=== PATIENT | female | born 1960 | race Caucasian/White ===

== ENCOUNTER 2018-10-26 09:02 | Emergency (ER) | payer OTHER, MEDICAID ==
[~2018-10-26] VITALS: Ht 162.6 cm; Wt 47.7 kg
[2018-10-26 09:06] VITALS: Ht 162.6 cm; Wt 47.7 kg
[2018-10-26 09:44] LABS: APPEARANCE HAZY (CLEAR); BILIRUBIN NEGATIVE (NEGATIVE); COLOR YELLOW (YELLOW); GLUCOSE NEGATIVE (NEGATIVE); KETONE NEGATIVE (NEGATIVE); NITRITE NEGATIVE (NEGATIVE); PROTEIN TRACE mg/dL (NEGATIVE); SPECIFIC GRAVITY 1.025 (1.005-1.020); UROBILINOGEN NORMAL (NORMAL)
[2018-10-26 09:45] LABS: BACTERIA MODERATE /hpf (NONE SEEN); EPITHELIAL CELLS 0-5 /hpf (0-5); MUCUS <1+ /lpf (NONE SEEN); RED CELLS - URINE 0-5 /hpf (0-5); WHITE CELLS - URINE 0-5 /hpf (0-5)
[2018-10-26 09:53] LABS: BASOPHILS 0.2 % (0-2); EOSINOPHILS 2.2 % (0-7); HEMATOCRIT 45.9 % (36.0-48.0); HEMOGLOBIN 15.5 g/dL (12-16); IMMATURE GRANULOCYTES 0.2 % (0-5); LYMPHOCYTES 22.6 % (15-50); MCH 30.9 pg (26.0-34.0); MCHC 33.8 g/dL (31.0-37.0); MCV 91.6 fL (80.0-100.0); MEAN PLATELET VOLUME 10.3 fL (7.4-10.4); MONOCYTES 9.7 % (2-11); NEUTROPHILS 65.1 % (40-80); PLATELET COUNT 173 10x3/uL (130-400); RBC 5.01 10x6/uL (4.00-5.40); RDW 13.5 % (11.5-14.5); WBC 5.9 10x3/uL (4.8-10.8)
[2018-10-26 09:56] LABS: UDS - AMPHET NEGATIVE QUAL (NEGATIVE); UDS - BARB NEGATIVE QUAL (NEGATIVE); UDS - BENZO NEGATIVE QUAL (NEGATIVE); UDS - COCAINE NEGATIVE QUAL (NEGATIVE); UDS - OPIATE NEGATIVE QUAL (NEGATIVE); UDS - PCP NEGATIVE QUAL (NEGATIVE); UDS - THC POSITIVE QUAL (NEGATIVE)
[2018-10-26 10:01] LABS: ALBUMIN 3.8 g/dL (3.4-5.0); BILIRUBIN - TOTAL 0.32 mg/dL (0.2-1.3); CALCIUM 9.7 mg/dL (8.5-10.1); CARBON DIOXIDE 30.5 mmol/L (21.0-32.0); CREATININE - SERUM 0.9 mg/dL (0.6-1.3); POTASSIUM - SERUM 3.5 mmol/L (3.5-5.1)
[2018-10-26 10:02] LABS: C-REACTIVE PROTEIN 0.5 mg/dL (0.0-0.9); THYROID STIMULATING HORMONE 1.71 uIU/mL (0.36-3.74)
[2018-10-26 11:01] LABS: ERYTHROCYTE SEDIMENTATION RATE 20 mm/hr (0-30)
[2018-10-26] MEDS ORDERED: DOXYCYCLINE HY100 M2 PO (12:55)
[2018-10-26] MEDS ORDERED: TYLENOL W/CODEI1 TAB PO (12:55)
[2018-10-26 19:53] VITALS: BP 123/78
== END 2018-10-26 13:09 | disposition home or self-care (01) ==
LOC: D.ER 09:02
PROVIDERS: Family Medicine
DX: I88.9 Nonspecific lymphadenitis, unspecified (principal); Q28.2 Arteriovenous malformation of cerebral vessels

== ENCOUNTER 2018-11-03 14:31 | Outpatient (CLI) | payer MEDICAID ==
[~2018-11-03] VITALS: Ht 162.6 cm; Wt 94.5 kg
--- NOTE | ~2018-11-03 | HEMODYNAMI ---
PATIENT:MICHAEL ECHEVERRIA MEDICAL RECORD: [id number] : 58 LOCATION:D. D.2115 ADMISSION DATE: 11/03/18 Generatedon:11/04/201811:44 Patient name: MICHAEL ECHEVERRIA Patient #: [id number] SSN: : 1960 Date of study: 11/04/2018 Page: Of Hemodynamic Procedure Report Patient Data Patient Demographics Procedure consent was obtained First Name: MICHAEL Gender: Female Last Name: JUWAN : 1960 Patient #: [id number] Age: 58 year(s) Race: Unknown Additional ID: [id number] Contact details Address: [address] [place] [address] State: [place] City: [place] Zip code: [address] Past Medical History Allergies: No known allergies Admission Admission Data Admission Date: 11/03/2018 Admission Time: 14:31 Admit Source: Emergency department Room #: D.2115 Weight (lbs.): 98.11 Weight (kg.): 44.5 Procedure Procedure Types Cath Procedure Diagnostic Procedure LHC LHC w/Coronaries Peripheral Cath Diagnostic Procedure 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 Peripheral Procedures Hbmij-Lthvxhh-Zsq-Off Procedure Description Procedure Date Procedure Date: 11/04/2018 Procedure Start Time: 11:30 Procedure End Time: 11:43 Procedure Staff Name Function Mando Vo MD Performing Physician Amandeep Wilkinson RT Monitor Mahi Calderon RT Scrub Ely Zavaleta RN Nurse Procedure Data Cath Procedure Fluoroscopy Diagnostic fluoroscopy Total fluoroscopy Time: 1.1 time: 1.1 min min Diagnostic fluoroscopy Total fluoroscopy dose: dose: 39.04 mGy 39.04 mGy Contrast Material Contrast Material Type Amount (ml) Isovue 370 78 Entry Location Entry Primary Successful Side Size Upsize Upsize Entry Closure Succes sful Closure Location (Fr) 1 (Fr) 2 (Fr) Remarks Device Remarks Femoral Left 5 Fr Exoseal artery Estimated blood loss: 5 ml Diagnostic catheters Device Type Used For End Catheter Placement MULTIPACK JL 4.0 5Fr Procedure catheter MULTIPACK 3DRC 5Fr Procedure catheter MULTIPACK Pigtail 5 Fr Procedure catheter Procedure Complications No complications Procedure Medications Medication Administration Route Dosage Oxygen etCO2 Nasal cannula 2 l/min Lidocaine 2% added to field 20 Heparin Flush Bag added to field 2 bags (1000units/500ml NS) 0.9% NaCl I.V. ml/hr Benadryl I.V. 50 mg Versed I.V. 1 mg Fentanyl I.V. 50 mcg Versed I.V. 1 mg Fentanyl I.V. 50 mcg Versed I.V. 1 mg Fentanyl I.V. 50 mcg Hemodynamics Rest Heart Rate: 61 (bpm) Snapshots Pre Cath Intra NCS Post Cath Vital Signs Time Heart Resp SPO2 etCO2 NIBP (mmHg) Rhythm Pain Sedation Rate (ipm) (%) (mmHg) Status Level (bpm) 11:08:34 56 22 98 0 140/70(94) SB 0 (11) 10(A) , No pain 11:12:39 59 21 99 25.3 154/77(102) SB 0 (11) 10(A) , No pain 11:16:23 60 30 99 23.8 126/65(90) NSR 0 (11) 10(A) , No pain 11:20:26 58 15 98 35 138/66(95) SB 0 (11) 10(A) , No pain 11:24:01 67 18 98 18.6 148/110(126) NSR 0 (11) 10(A) , No pain 11:28:13 56 13 98 0.7 126/64(83) SB 0 (11) 10(A) , No pain 11:32:25 54 13 98 38.7 117/53(74) SB 0 (11) 9(A) , No pain 11:36:33 55 16 98 37.3 106/53(72) SB 0 (11) 9(A) , No pain 11:40:37 55 23 98 38 105/54(72) SB 0 (11) 10(A) , No pain Medications Time Medication Route Dose Verified Delivered Reason Notes Eff ectiveness by by 11:16:14 Oxygen etCO2 2 Mando Graves used for Nasal l/min Gilda Zavaleta financial sales associate cannula 11:16:20 Lidocaine 2% added 20ml Mando Gilmore for local to vial Gilda Vo MD anesthetic field 11:16:26 Heparin Flush added 2 Mando Gilmore used for Bag to bags Gilda Vo MD procedure (1000units/500ml field NS) 11:16:34 0.9% NaCl I.V. ml/hr Mando Graves Per Gilda Zavaleta RN physician 11:17:09 Benadryl I.V. 50 mg Mando Graves used for from Gilda Zavaleta RN procedure floor stock 11:30:19 Versed I.V. 1 mg Mando Graves for Gilda Zavaleta RN sedation 11:30:25 Fentanyl I.V. 50 Mando Diasie for jeb Zavaleta RN sedation 11:33:54 Versed I.V. 1 mg Mando Graves for Gilda Zavaleta RN sedation 11:33:57 Fentanyl I.V. 50 Mando Diasie for mcg Gilda Zavaleta RN sedation 11:35:52 Versed I.V. 1 mg Manod Graves for Gilda Zavaleta RN sedation 11:35:56 Fentanyl I.V. 50 Mando Graves for mcg Gilda Zavaleta RN sedation Procedure Log Time Note 10:30:36 Ely Zavaleta RN sent for patient. Start room use. 10:56:17 Informed consent obtained and on chart 10:56:20 Admit Source: Emergency department 10:56:33 Diagnostic Cath status Urgent 10:56:41 Time tracking: Regular hours (M-F 7:00 - 5:00) 10:56:44 Plan of Care:Hemodynamics will remain stable., Cardiac rhythm will remain stable., Comfort level will be maintained., Respiratory function will remain adequate., Patient/ family verbilizes understanding of procedure., Procedure tolerated without complication., Recovers from procedure without complications.. 10:56:51 H&P Date Dictated: 11/03/2018 Within 30 days and on chart.. 10:57:27 Lab Result : BUN 20 mg/dl 10:57:27 Lab Result : Creatinine 0.8 mg/dl 10:57:28 Lab Result : Hemoglobin 15.3 g/dl 10:57:28 Lab Result : Hematocrit 44.2 % 10:57:29 Lab results completed and on chart. 10:57:51 Patient received from Med II to CCL 3 Alert and oriented. Tansferred to table in Supine position. 10:57:52 Warm blankets applied, and papito hugger turned on for patient comfort. 10:57:52 Correct patient and procedure confirmed by team. 10:57:53 ECG and BP/O2 sat monitors applied to patient. 10:57:53 Pre-procedure instructions explained to patient. 10:57:54 Pre-op teaching completed and patient verbalized understanding. 10:57:55 Family in patients room. 10:57:56 Patient NPO since Midnight. 10:58:01 Patient allergic to No known allergies 11:07:59 Vital chart was started 11:08:00 Baseline sample Acquired. 11:08:03 Rhythm: sinus rhythm 11:08:04 Full Disclosure recording started 11:08:07 Is the patient allergic to Iodine/contrast media? No. 11:08:07 Is patient on blood thinner?Yes 11:08:10 ACC The patient was administered the following blood thiners within the last 24 hours: ACCPlavix 11:08:11 Patient diabetic? No. 11:08:14 Previous problem with sedation/anesthesia? No ? 11:08:15 Snore? No 11:08:16 Sleep apnea? No 11:08:17 Deviated septum? No 11:08:17 Opens mouth fully? Yes 11:08:18 Sticks out tongue? Yes 11:08:19 Airway obstruction? No ? 11:08:22 Dentures? Yes out 11:08:24 Pre procedure: right dorsailis pedis pulse 2+ Normal; easily identifiable; not easily obliterated 11:08:26 Pre procedure: left dorsailis pedis pulse 2+ Normal; easily identifiable; not easily obliterated 11:08:28 Patient pain scale 0/10 ?. 11:08:31 IV patent on arrival in left hand with 0.9% NaCl at [facility]. 11:08:34 Bilateral groins area was prepped with chlora-prep and draped in sterile fashion 11:08:35 Alarms reviewed by R. N. 11:08:35 Sharps counted by scrub and verified by R.N. 11:08:37 Use device set Femoral Dx 11:08:37 ACIST Syringe (72161) opened to sterile field. 11:08:38 Bag Decanter (2002S) opened to sterile field. 11:08:38 Medline Cath Pack ([id number]) opened to sterile field. 11:08:40 ACIST Hand Control (13372) opened to sterile field. 11:08:41 ACIST Manifold (66841) opened to sterile field. 11:08:42 Tegaderm 4 x 4 (1626W) opened to sterile field. 11:08:42 SHEATH 5FR Evangeline (PLY836) opened to sterile field. 11:08:44 DIAGNOSTIC Multipack 5Fr catheter set (EN5181) opened to sterile field. 11:08:46 DIAGNOSTIC WIRE .035 260cm J wire (576571) opened to sterile field. 11:16:14 Oxygen 2 l/min etCO2 Nasal cannula was administered by Ely Zavaleta RN; used for procedure; 11:16:20 Lidocaine 2% 20ml vial added to field was administered by Mando Vo MD; for local anesthetic; 11:16:26 Heparin Flush Bag (1000units/500ml NS) 2 bags added to field was administered by Mando Vo MD; used for procedure; 11:16:34 0.9% NaCl ml/hr I.V. was administered by Ely Zavaleta RN; Per physician; 11:16:43 IV Extension Set opened to sterile field. 11:17:09 Benadryl 50 mg I.V. was administered by Ely Zavaleta RN; used for procedure; from floor stock 11:17:44 Patient Weight : 98.11 lbs 11:18:40 Zero performed for pressure channel P1 11:23:12 Zero performed for pressure channel P1 11:29:05 Physician arrived 11:29:05 --------ALL STOP TIME OUT------ 11:29:06 Final Timeout: patient, procedure, and site verified with staff and physician. All members of the team are in agreement. 11:29:07 Bilateral groins site verified by team. 11:29:35 Maximum allowable Isovue 300 dose 300ml. Physician notified. (300ml for normal creatinines. For patients with creatinine of 1.7 or higher multiply weight(kg) x 5 divided by creatinine.) 11:29:40 Fire Safety Assessment: A--An alcohol-based skin anteseptic being used preoperatively., C--Open oxygen or nitrous oxide is being used., D--An ESU, laser, or fiber-optic light is being used. 11:29:43 Physical assessment completed. ASA score P 2 - A patient with mild systemic disease as per Mando Vo MD. 11:29:45 Sedation plan: IV Moderate Sedation Medication:Versed, Fentanyl 11:30:19 Versed 1 mg I.V. was administered by Ely Zavaleta RN; for sedation; 11:30:25 Fentanyl 50 mcg I.V. was administered by Ely Zavaleta RN; for sedation; 11:30:42 Procedure started. 11:30:46 Local anesthetic to left femerol artery with Lidocaine 2% by Mando Vo MD.INITIAL ACCESS ONLY 11:30:58 A 5 Fr sheath was inserted into the Left Femoral artery 11:32:30 A MULTIPACK JL 4.0 5Fr catheter was advanced over the wire and used for Procedure. 11:32:41 LCA angiography performed. 11:33:10 Catheter exchanged over wire. 11:33:19 A MULTIPACK 3DRC 5Fr catheter was advanced over the wire and used for Procedure. 11:33:54 Versed 1 mg I.V. was administered by Ely Zavaleta RN; for sedation; 11:33:57 Fentanyl 50 mcg I.V. was administered by Ely Zavaleta RN; for sedation; 11:34:48 RCA angiography performed. 11:34:50 Catheter exchanged over wire. 11:34:54 A MULTIPACK Pigtail 5 Fr catheter was advanced over the wire and used for Procedure. 11:35:01 LV gram done using LANDIS 11:35:03 Injector settings: Ml/sec: 10, Volume: 20, 11:35:05 LV hemodynamics recorded. 11:35:09 EF : 55 % 11:35:52 Versed 1 mg I.V. was administered by Ely Zavaleta RN; for sedation; 11:35:56 Fentanyl 50 mcg I.V. was administered by Ely Zavaleta RN; for sedation; 11:36:35 Abdominal angiogram w/ runoff was performed. 11:36:49 Left leg runoff performed. 11:37:04 Right leg runoff performed. 11:37:22 Catheter removed. 11:37:32 EXOSEAL 5Fr (EX500) opened to sterile field. 11:37:41 Sheath removed intact; hemostasis achieved with Exoseal to the Left Femoral artery. 11:37:43 Procedure ended.(Physican Out) 11:41:33 Fluoroscopy time 01.10 minutes. 11:41:38 Fluoroscopy dose: 39.04 mGy 11:41:38 Flurop Dose total: 39.04 11:41:44 Contrast amount:Isovue 370 78ml. 11:41:45 Sharps counted by scrub and verified by R.N. 11:41:46 Insertion/operative site no bleeding no hematoma. 11:41:48 Post-op/insertion site Left Femoral artery dressed using a 4 x 4 and Tegaderm. 11:41:52 Post left femerol artery:stable, soft, clean and dry 11:41:53 Post Procedure Pulses reassessed and unchanged 11:41:55 Post-procedure physical assessment completed. ASA score P 2 - A patient with mild systemic disease as per Mando Vo MD. 11:41:57 Post procedure rhythm: unchanged. 11:42:00 Estimated blood loss: 5 ml 11:42:01 Post procedure instruction explained to patient.Patient verbalizes understanding. 11:42:01 Patient needs reinforcement of post procedure teaching. 11:43:23 Procedure and supply charges have been captured, reviewed, submitted and are correct. 11:43:25 Procedure Complication : No complications 11:43:27 Vital chart was stopped 11:43:27 See physician's report for complete and final results. 11:43:29 Report given to PCU. 11:43:31 Patient transfered to PCU with Stretcher. 11:43:34 Procedure ended. 11:43:34 Full Disclosure recording stopped 11:43:39 End room use (Document Last) Device Usage Item Name Manufacture Quantity Catalog Hospital Part Current Minimal L ot# / Number Charge Number Stock Stock Serial# Code ACIST Acist 1 69756 595739 139022 232165 20 Syringe Medical (33081) Systems Inc Bag Microtek 1 186818 00932 346870 5 Decanter Medical Inc. () Medline Medline 1 [id number] 512591 44525 451870 5 Cath Pack ([id number]) ACIST Hand Acist 1 88719 122726 342078 881924 5 Control Medical (03482) Systems Inc ACIST Acist 1 90265 849215 772298 056120 5 Manifold Medical (59507) Systems Inc Tegaderm 4 3M 1 1626W 211942 728320 723973 5 x 4 (1626W) SHEATH 5FR Terumo 1 SZP675 166684 047386 570712 5 Evangeline (ZCV174) DIAGNOSTIC Cardinal 1 KN0303 536844 28386 684562 30 Multipack Health 5Fr catheter set (YE1823) DIAGNOSTIC St Raphael 1 887507 843440 712000 489222 30 WIRE .035 260cm J wire (692449) IV Hospira 1 64983-53 075574 76924 126879 5 Extension Set MULTIPACK Cardinal 1 994423 5 JL 4.0 5Fr Health catheter MULTIPACK Cardinal 1 673523 5 3DRC 5Fr Health catheter MULTIPACK Cardinal 1 569860 5 Pigtail 5 Health Fr catheter EXOSEAL 5Fr Cardinal 1 EX500 137901 686402 812056 10 (EX500) Health Signature Audit [place] Stage Time Signature Unsigned Intra-Procedure 11/04/2018 Amandeep Wilkinson 11:43:54 AM RT(R) Signatures Monitor : Amandeep Wilkinson RT Signature : Date : Time : [id number] [facility] [place] [address]
[~2018-11-03 14:31] MED LIST: DOXYCYCLINE HY100 M2 PO; TYLENOL W/CODEI1 TAB PO
[2018-11-03] MEDS ORDERED: PAXIL20 MG PO (14:42)
[2018-11-03 15:17] LABS: BASOPHILS 0.5 % (0-2); EOSINOPHILS 2.6 % (0-7); HEMATOCRIT 44.2 % (36.0-48.0); HEMOGLOBIN 15.3 g/dL (12-16); IMMATURE GRANULOCYTES 0.2 % (0-5); LYMPHOCYTES 30.2 % (15-50); MCH 31.3 pg (26.0-34.0); MCHC 34.6 g/dL (31.0-37.0); MCV 90.4 fL (80.0-100.0); MONOCYTES 10.1 % (2-11); NEUTROPHILS 56.4 % (40-80); PLATELET COUNT 176 10x3/uL (130-400); RBC 4.89 10x6/uL (4.00-5.40); RDW 13.4 % (11.5-14.5); WBC 6.5 10x3/uL (4.8-10.8)
[2018-11-03 15:21] LABS: APTT 25.3 SECONDS (22.8-39.4); INR 1.03 (0.85-1.17)
[2018-11-03 15:24] LABS: ALBUMIN 3.7 g/dL (3.4-5.0); ALKALINE PHOSPHATASE 108 U/L (46-116); ALT (SGPT) 19 U/L (10-68); BILIRUBIN - TOTAL 0.33 mg/dL (0.2-1.3); CALC OSMOLALITY 281 mosm/kg (275-300); CALCIUM 9.8 mg/dL (8.5-10.1); CARBON DIOXIDE 28.1 mmol/L (21.0-32.0); CHLORIDE - SERUM 103 mmol/L (98-107); CREATININE - SERUM 0.8 mg/dL (0.6-1.3); GLUCOSE 150 mg/dL (74-106); POTASSIUM - SERUM 3.2 mmol/L (3.5-5.1); PROTEIN - SERUM 8.3 g/dL (6.4-8.2); SODIUM 138 mmol/L (136-145); UREA NITROGEN 20 mg/dL (7-18); eGFR NON AFRICAN AMERICAN 78 mL/min (90-120)
[2018-11-03 15:36] LABS: CKMB 0.6 U/L (0.0-3.6); CREATINE KINASE 29 UL (21-215); MAGNESIUM - SERUM 1.8 mg/dL (1.8-2.4)
[2018-11-03 15:37] LABS: TROPONIN-I < 0.017 ng/mL (0.000-0.060)
[2018-11-03 18:18] LABS: CKMB 0.7 U/L (0.0-3.6); CREATINE KINASE 30 UL (21-215); TROPONIN-I < 0.017 ng/mL (0.000-0.060)
--- NOTE | 2018-11-03 18:37 | NUR ---
TRANSFER FROM ER BY W/C. SOCORROINTED TO ROOM. CALL LIGHT IN REACH. WILL CONT. PLAN OF CARE.
--- NOTE | 2018-11-03 19:37 | NUR ---
RESUMING PATIENT CARE. PATIENT IS ALERT AND ORIENTED. RESTING COMFORTABLY IN BED. RESPIRATIONS ARE EVEN AND UNLABORED. NO S/S OF DISTRESS. NO C/O PAIN. CALL LIGHT WITHIN REACH. WILL CPOC.
[2018-11-03 20:00] VITALS: BP 101/56
[2018-11-03 22:38] VITALS: BP 124/81; Ht 162.6 cm; Wt 94.5 kg
[2018-11-04 00:19] LABS: CKMB 0.2 U/L (0.0-3.6); CREATINE KINASE 24 UL (21-215)
[2018-11-04 00:21] LABS: TROPONIN-I < 0.017 ng/mL (0.000-0.060)
[2018-11-04 00:40] VITALS: BP 97/59
[2018-11-04 05:38] VITALS: BP 120/62
[2018-11-04 06:41] LABS: ALBUMIN 3.1 g/dL (3.4-5.0); ALKALINE PHOSPHATASE 81 U/L (46-116); ALT (SGPT) 18 U/L (10-68); BILIRUBIN - TOTAL 0.47 mg/dL (0.2-1.3); CALC OSMOLALITY 281 mosm/kg (275-300); CALCIUM 9.1 mg/dL (8.5-10.1); CARBON DIOXIDE 25.8 mmol/L (21.0-32.0); CHLORIDE - SERUM 106 mmol/L (98-107); CKMB 0.7 U/L (0.0-3.6); CREATINE KINASE 30 UL (21-215); CREATININE - SERUM 0.6 mg/dL (0.6-1.3); GLUCOSE 109 mg/dL (74-106); PROTEIN - SERUM 6.8 g/dL (6.4-8.2); SODIUM 140 mmol/L (136-145); TROPONIN-I < 0.017 ng/mL (0.000-0.060); UREA NITROGEN 17 mg/dL (7-18); eGFR NON AFRICAN AMERICAN > 90 mL/min (90-120)
[2018-11-04 06:46] LABS: POTASSIUM - SERUM 3.8 mmol/L (3.5-5.1)
[2018-11-04 07:27] LABS: BASOPHILS 0.2 % (0-2); EOSINOPHILS 2.6 % (0-7); HEMATOCRIT 37.7 % (36.0-48.0); HEMOGLOBIN 12.8 g/dL (12-16); IMMATURE GRANULOCYTES 0.2 % (0-5); MCH 30.8 pg (26.0-34.0); MCV 90.6 fL (80.0-100.0); MEAN PLATELET VOLUME 10.3 fL (7.4-10.4); MONOCYTES 8.2 % (2-11); NEUTROPHILS 61.8 % (40-80); PLATELET COUNT 144 10x3/uL (130-400); RBC 4.16 10x6/uL (4.00-5.40); RDW 13.6 % (11.5-14.5); WBC 5.3 10x3/uL (4.8-10.8)
[2018-11-04 08:00] VITALS: BP 112/67
[2018-11-04 11:00] VITALS: BP 116/65
--- NOTE | 2018-11-04 11:41 | HP ---
PATIENT: MICHAEL DOSHI MEDICAL RECORD: [id number] ACCOUNT: [id number] LOCATION:[address] : 58 ADMISSION DATE: 11/03/18 PCP: LENA ALAN MD HISTORY AND PHYSICAL EXAMINATION ADMITTING DIAGNOSES: 1. Unstable angina. 2. Abnormal ECG. 3. Claudication. 4. Smoking history. HISTORY OF PRESENT ILLNESS: Ms. Doshi presented to our office this week with increasing episodes of chest pain. In the office, her EKG had significant ST depression inferolaterally. She was set for cardiac catheterization later in the week. Her chest pain has deescalated. She is having multiple episodes at rest. She presented to the Emergency Room. Her troponin is normal. Now, her EKG is without the changes that she had in our office. She was put on Bystolic. Her heart rate and EKG here is in the 60s. In the office, her heart rate was approximately 100. However, despite the improved EKG and heart rate, she is continuing to have the episodes of chest pain. It continued to progress, as well she complains of right leg claudication. This has been going on for a number of months. It is severe lifestyle limiting claudication, and her pulses in the right leg are worse than that in the left. She was set for aortofemoral runoff as well as the cardiac catheterization due to the claudication symptomatology of the right leg. PHYSICAL EXAMINATION: GENERAL APPEARANCE: Well-nourished, well-developed, appears stated age. Level of distress, comfortable. PSYCHIATRIC: Mental status, alert, normal affect. Orientation, oriented to time, place and person. EYES: Lids and conjunctiva, noninjected. No discharge, no pallor. ENT: Lips, teeth, gums, normal dentition. Oropharynx, no cyanosis, no pallor. NECK: Carotid arteries, bilateral normal upstroke, no bruits, no thrills. JUGULAR VEINS: No jugular venous pressure or distention. CERVICAL LYMPH NODES: Nontender, nonenlarged. THYROID: Not enlarged. Nontender. No nodules. LUNGS: Respiratory effort, unlabored. CHEST: Normal curvature. No thoracic deformity. No chest wall tenderness. Percussion, resonant. Auscultation, clear. No wheezes, no rales, no rhonchi. CARDIOVASCULAR: Precordial exam, nondisplaced. No heaves or pericardial thrills. Rate and rhythm, regular. Heart sounds, normal S1, normal S2. No S3, no gallop, no rub. Systolic murmur, not heard. Diastolic murmur, not heard. EXTREMITIES: No cyanosis, no edema. Peripheral pulses, full and equal in all extremities, except as noted. No bruits appreciated. ABDOMEN: Soft, nondistended. Normal aorta. No bruit. Nontender. No masses. Liver, nontender, no hepatomegaly. Spleen, nontender, no splenomegaly. MUSCULOSKELETAL: No joint tenderness. No joint swelling. No erythema. NEUROLOGICAL: Normal gait, normal strength, normal tone. SKIN: Warm and dry. OVERALL IMPRESSION: Progressive chest pain despite good heart rate and blood pressure control with the Bystolic. She continues to have progression of her symptomatology. We will proceed with coronary angiography and due to the progressive claudication symptomatology, we will proceed with aortofemoral HISTORY AND PHYSICAL [id number] MICHAEL DOSHI. TRANSINT:[id number] Voice Confirmation ID: [id number] DOCUMENT ID: [id number] MALVIN JESUS MD at 1141 CC: [id number] DICTATION DATE: 11/04/18806 MEDICAL NURSE: 11/04/18 08 [facility] [address] [id number]
--- NOTE | 2018-11-04 12:06 | NUR ---
BACK FROM FRONT ELEVATOR OPERATOR. VS WNL. LEFT GROIN STABLE WITHOUT BLEEDING OT HEMATOMA NOTED. WILL MONITOR.
--- NOTE | 2018-11-04 14:22 | NUR ---
BED REST UP. GROIN STABLE.
--- NOTE | 2018-11-04 15:27 | NUR ---
IV AND TELEMETRY DCD. DC PLANS GIVEN. UNDERSTANDING VOICED. ESCORTED TO CAR BY W/C.
--- NOTE | 2018-11-06 16:41 | DS ---
PATIENT:MICHAEL DOSHI :58 MEDICAL RECORD: [id number] DISCHARGE SUMMARY ADMISSION DATE: 11/03/18 DISCHARGE DATE: 11/04/18 DISCHARGE DIAGNOSES: 1. Chest pain. 2. Leg pain. 3. Normal cardiac catheterization this admission. 4. Normal aortofemoral runoff this admission. 5. Shortness of breath, dyspnea on exertion. HISTORY AND HOSPITAL COURSE: Ms. Doshi presents with claudication and anginal symptomatology; however, cardiac catheterization reveals no significant coronary artery disease, no significant peripheral vascular disease. Her leg pain and chest pain are nonarterial vascular in etiology. She was discharged home with no cardiac followup. Follow up with her primary care physician. TRANSINT:[id number] Voice Confirmation ID: [id number] DOCUMENT ID: [id number] MALVIN JESUS MD at 1641 CC: [id number] DICTATION DATE: 11/04/18 1147 LOG INSPECTOR: 11/04/18 1205 DEP CLI 11/04/18 [id number] [place] [address]
--- NOTE | 2018-11-06 16:41 | OP ---
PATIENT NAME: MICHAEL ECHEVERRIA MEDICAL RECORD: [id number] :58 LOCATION:D.OPS ADMISSION DATE: SURGEON: MALVIN JESUS MD DATE OF OPERATION: 11/04/2018 PROCEDURES: 1. Left heart catheterization. 2. Selective coronary angiography. 3. Left ventriculogram. 4. Aortofemoral runoff. 5. Abdominal aortography. INDICATIONS: Chest pain compatible with angina, leg pain compatible with claudication. PROCEDURE IN DETAIL: After informed consent was obtained and after a detailed explanation of risks, benefits as well as alternative therapies, the patient elected to proceed with angiogram and heart catheterization. The right femoral area was prepped and draped in normal sterile fashion. Right femoral artery was cannulated via modified Seldinger technique with placement of 6-Persian sheath. All catheters exchanged through this sheath. FINDINGS: Left ventriculogram was performed in standard 30-degree LANDIS view, reveals good cardiac wall motion throughout all segments. Overall ejection fraction estimated 60%. SELECTIVE CORONARY ANGIOGRAPHY: Left main, left anterior descending, left circumflex, right coronary artery are all smooth-walled vessels. There was no angiographic evidence of coronary artery disease. Abdominal aortography was performed. The catheter was pulled down for aortofemoral runoff. Abdominal angiography reveals no significant abdominal aortic disease, no dissection or aneurysm formation. No renal artery stenosis. RIGHT LEG: A. Iliac: The common internal and external iliacs are smooth-walled vessels with no angiographic evidence of peripheral vascular disease. B. Femoral system: The common, superficial, and deep femoral are smooth walled with no evidence of peripheral vascular disease. C. Popliteal and infrapopliteal vessels are small, but widely patent. There is 3-vessel runoff to the foot. LEFT LEG: A. Iliac: The common internal and external iliacs are smooth-walled vessels with no angiographic evidence of peripheral vascular disease. B. Femoral system: The common, superficial, and deep femoral are smooth walled with no evidence of peripheral vascular disease. C. Popliteal and infrapopliteal vessels are small, but widely patent. There is 3-vessel runoff to the foot. OVERALL IMPRESSION: No coronary artery disease is present. No peripheral vascular disease is present. Normal LV function. Symptomatology is nonarterial vascular in etiology. TRANSINT:[id number] Voice Confirmation ID: [id number] DOCUMENT ID: [id number] OPERATIVE REPORT [id number] JUWANMICHAEL SORENSEN JEFFREY MD at 1641 CC: [id number] DICTATION DATE: 11/04/18 1149 ICT SALES ASSISTANT: 11/04/18 1203 DEP CLI 11/04/18 [address] [place] [address]
== END 2018-11-04 15:28 | disposition home or self-care (01) ==
LOC: D.OPS 14:31 → D.M2 14:31 → D.ER 14:31 → EDSTATUS 17:32 → D.M2 17:47 → D.OPS 11-04 15:28
PROVIDERS: Family Medicine; ATTEND Internal Medicine Interventional Cardiology
DX: R07.9 Chest pain, unspecified (principal)

== ENCOUNTER → 2018-12-09 14:00 | Outpatient (CLI) | payer MEDICAID ==
[2018-11-03 22:38] VITALS: BMI 22.3
[~2018-12-09 14:00] MED LIST changes: +PAXIL20 MG PO
== END | disposition home or self-care (01) ==
LOC: D.MRI 14:00
PROVIDERS: ATTEND Orthopaedic Surgery
DX: M67.431 Ganglion, right wrist (principal)

== ENCOUNTER 2019-01-19 09:05 | Day surgery (SDC) | payer MEDICAID ==
[2019-01-18 11:04] LABS: HEMATOCRIT 43.5 % (36.0-48.0); HEMOGLOBIN 15.1 g/dL (12-16); MCH 31.5 pg (26.0-34.0); MCHC 34.7 g/dL (31.0-37.0); MCV 90.6 fL (80.0-100.0); MEAN PLATELET VOLUME 9.8 fL (7.4-10.4); RBC 4.8 10x6/uL (4.00-5.40); RDW 13.6 % (11.5-14.5); WBC 5.3 10x3/uL (4.8-10.8)
[~2019-01-19] VITALS: Ht 167.6 cm; Wt 49.4 kg
[2019-01-19 10:16] VITALS: BP 118/69; Ht 167.6 cm; Wt 49.4 kg
[2019-01-19] MEDS ORDERED: DURICEF500 MG PO (12:21)
[2019-01-19] MEDS ORDERED: HYDROCODON-ACE1 EAC7 PO (12:21)
--- NOTE | 2019-01-19 14:02 | OP ---
PATIENT NAME: MICHAEL DOSHI MEDICAL RECORD: [id number] :58 LOCATION:D.OPS ADMISSION DATE: SURGEON: JASON BRYSON DO DATE OF OPERATION: 01/19/2019 PROCEDURE PERFORMED: Right wrist cyst excision. PREOPERATIVE DIAGNOSIS: Cyst of the right wrist. POSTOPERATIVE DIAGNOSIS: Cyst of the right wrist. INDICATIONS: Ms. Doshi is a 58-year-old female, who had this cyst on her right wrist over the ulnar side for quite some time. It got bigger and was quite bothersome to her. It was very large over the ulnar side and dorsal side of the wrist. I got an MRI, which showed a cyst. We described it as possibly ganglion cyst in the extensor carpi ulnaris tendon sheath. I informed her that I could remove it, but there is good chance of it to come back. She is okay with that and was willing to accept the risks of damage to the ulnar sensory nerve of the dorsal wrist and bleeding, recurrence of the cyst, and need for further surgery, infection and bleeding. She was okay with all those and signed the consent. SURGEON: Jason Bryson DO DESCRIPTION OF PROCEDURE: The patient was taken to the operative suite, laid in supine position, given a gram of Ancef preoperatively. The right upper extremity was prepped and draped in sterile fashion. A tourniquet was used after time-out was performed. The right upper extremity was exsanguinated with an Esmarch and tourniquet was inflated for approximately 30 minutes. The incision was then marked out over the ulnar dorsal side of the wrist in line with the ECU tendon. Careful dissection was made down to the tendon itself retracting the dorsal sensory branch of the ulnar nerve out of the away when encountered, opened the sheath and the tendon was somewhat frayed and the cyst that was around it had small beads in and around the tendon sheath. All this was removed and the tendon was debrided very carefully and was not torn more than 50%, so no repair was done. This was then thoroughly irrigated. The cyst and the small beads were sent for path. Once this was all removed, the tourniquet was let down and any bleeding was coagulated with bipolar at that time and the skin was closed with 4-0 Monocryl in an inverted interrupted fashion and Prineo glue placed on the skin. It was then wrapped with Adaptic, 4 x 4, and secured with an Omkar wrap. She was awakened and taken to recovery in stable condition. BLOOD LOSS: Minimal. COMPLICATION: None. TRANSINT:[id number] Voice Confirmation ID: [id number] DOCUMENT ID: [id number] OPERATIVE REPORT [id number] MICHAEL DOSHI MICHAEL D, DO at 1402 CC: [id number] DICTATION DATE: 01/19/19 1219 SUPERINTENDENT MARINE: 01/19/19 1256 [facility] 01/19/19 [address] [place] [address]
== END 2019-01-19 13:48 | disposition home or self-care (01) ==
LOC: D.OPS 09:05 → D.PAN 11:30 → D.OPS 11:30
PROVIDERS: Anesthesiology; ATTEND Orthopaedic Surgery
DX: M71.331 Other bursal cyst, right wrist (principal); Z01.812 Encounter for preprocedural laboratory examination

== ENCOUNTER → 2019-09-13 08:08 | Outpatient (CLI) | payer OTHER ==
[2019-01-19 10:16] VITALS: BMI 17.6
[~2019-09-13 08:08] MED LIST changes: +DURICEF500 MG PO; +HYDROCODON-ACE1 EAC7 PO
== END | disposition home or self-care (01) ==
LOC: D.MRI 08:08
PROVIDERS: ATTEND Clinical Nurse Specialist Family Health
DX: M67.441 Ganglion, right hand (principal)

== ENCOUNTER 2019-11-05 05:12 | Day surgery (SDC) | payer OTHER ==
[~2019-11-05] VITALS: Ht 320 cm; Wt 51.7 kg
[2019-11-05 05:36] LABS: HEMATOCRIT 39.4 % (36.0-48.0); HEMOGLOBIN 12.9 g/dL (12-16); MCH 31.1 pg (26.0-34.0); MCHC 32.7 g/dL (31.0-37.0); MCV 94.9 fL (80.0-100.0); MEAN PLATELET VOLUME 9.4 fL (7.4-10.4); RBC 4.15 10x6/uL (4.00-5.40); RDW 13.7 % (11.5-14.5); WBC 4.6 10x3/uL (4.8-10.8)
[2019-11-05 05:57] VITALS: BP 123/69; Ht 320 cm; Wt 51.7 kg
[2019-11-05] MEDS ORDERED: HYDROCODON-ACE1 EAC7 PO (07:54)
--- NOTE | 2019-11-05 10:22 | NUR ---
0921 IV DC'D. CATHETER TIP INTACT. NO BLEEDING AT SITE. BANDAID APPLIED. ASSISTED PT IN GETTING DRESS. ARM SLING PUT ON RIGHT ARM.
--- NOTE | 2019-11-06 08:22 | OP ---
PATIENT NAME: MICHAEL DOSHI MEDICAL RECORD: [id number] :58 LOCATION:[facility] ADMISSION DATE: SURGEON: JASON BRYSON DO DATE OF OPERATION: 11/05/2019 PROCEDURE PERFORMED: Right third metacarpophalangeal joint ganglion cyst removal. PREOPERATIVE DIAGNOSIS: Right third metacarpophalangeal joint dorsal ganglion. POSTOPERATIVE DIAGNOSIS: Right third metacarpophalangeal joint dorsal ganglion. INDICATIONS: Ms. Doshi is a 59-year-old female who developed a ganglion cyst over the right third metacarpophalangeal joint. It was quite bothersome to her with her daily activities as it was right under the extensor tendon on the dorsal surface. She had a similar one on the wrists, it took out a year and half ago or so, that has not come back luckily. I informed her of the risks including damage to the tendon right there, recurrence of the cyst, continued pain, damage to nerves and vessels in the area and need for further surgery and infection also and she signed the consent. SURGEON: Jason Bryson DO DESCRIPTION OF PROCEDURE: The patient was taken to the operative suite, laid in supine position, given general anesthetic, given a gram of Ancef preoperatively. The right upper extremity was then prepped and draped in sterile fashion after she was sedated and LMA was placed. A timeout was performed, everyone was in agreement with the correct side, site, patient, and procedure. We then began with an incision over the right third metacarpophalangeal joint, right over the extensor tendon. I carefully dissected down to the tendon, pulled it radially and ulnarly in order to get the cyst out, being careful not to violate the sagittal bands. Once the cyst was removed, there was some rice bodies in it, this was removed and then the tourniquet had been inflated prior to starting after exsanguinating the right upper extremity it was up for 14 minutes at 250 mmHg. Then, once that was removed and the tourniquet was let down, injected the site with 10 mL of 0.25% Marcaine with epinephrine around the site and then the wound was closed by Rosendo Ca, certified surgical services tech with 4-0 Monocryl in a horizontal mattress fashion. This was then dressed with Adaptic, 4 x 4s, cast padding and Omkar wrap, awakened and taken to recovery in stable condition. BLOOD LOSS: Minimal. COMPLICATIONS: None. TRANSINT:[id number] Voice Confirmation ID: [id number] DOCUMENT ID: [id number] JASON BRYSON DO at 0822 CC: [id number] DICTATION DATE: 11/05/19 0831 CABLE FORMER: 11/05/19 1421 [facility] 11/05/19 [id number] [place] [address]
== END 2019-11-05 09:34 | disposition home or self-care (01) ==
LOC: D.OPS 05:12 → D.PAN 08:15 → D.OPS 08:15
PROVIDERS: Anesthesiology; ATTEND Orthopaedic Surgery
DX: M67.471 Ganglion, right ankle and foot (principal)

== ENCOUNTER 2020-09-08 05:00 | Day surgery (SDC) | payer OTHER ==
[2020-09-04 11:52] LABS: BASOPHILS 0.2 % (0-2); EOSINOPHILS 3.1 % (0-7); HEMATOCRIT 39.7 % (36.0-48.0); HEMOGLOBIN 13.3 g/dL (12-16); IMMATURE GRANULOCYTES 0.2 % (0-5); LYMPHOCYTE ABS# 1.81 10x3/uL (1.18-3.74); LYMPHOCYTES 33.3 % (15-50); MCH 31.7 pg (26.0-34.0); MCHC 33.5 g/dL (31.0-37.0); MCV 94.5 fL (80.0-100.0); MEAN PLATELET VOLUME 9.7 fL (7.4-10.4); MONOCYTES 6.8 % (2-11); NEUTROPHIL ABS# 3.07 10x3/uL (1.56-6.13); NEUTROPHILS 56.4 % (40-80); PLATELET COUNT 208 10x3/uL (130-400); RDW 13.6 % (11.5-14.5); WBC 5.4 10x3/uL (4.8-10.8)
[~2020-09-08] VITALS: Ht 167.6 cm; Wt 49.9 kg
[2020-09-08 05:31] VITALS: BP 126/72; Ht 167.6 cm; Wt 49.9 kg
--- NOTE | 2020-09-08 09:00 | NUR ---
RIGHT FOREARM PIV DC'D WITH TIP INTACT. PATIENT AMBULATING AROUND ROOM WITHOUT UNSTEADINESS OR DIZZINESS. DISCHARGE INSTRUCTIONS REVIEWED WITH PATIENT, PATIENT BEGINS DRESSING IN PERSONAL CLOTHING
--- NOTE | 2020-09-09 08:22 | OP ---
PATIENT NAME: MICHAEL DOSHI MEDICAL RECORD: [id number] :58 LOCATION[facility] AD[facility]ION DATE: SURGEON: JASON BRYSON DO DATE OF OPERATION: 09/08/2020 PROCEDURE PERFORMED: Left index finger cyst excision. PREOPERATIVE DIAGNOSIS: Index finger cyst, left hand, recurrent. POSTOPERATIVE DIAGNOSIS: Index finger cyst, left hand, recurrent. INDICATIONS: Ms. Doshi is a 60-year-old female who had a left index finger cyst excision a few months ago, it returned, I told there is a risk of this. She wanted it taken off again. Told there was a good chance of recurring, but we do research. She was okay with that. Aware of the risks including infection, bleeding, damage to nerves or vessels in the area, loss of motion of the finger, continued pain and she signed the consent. SURGEON: Jason Bryson DO DESCRIPTION OF PROCEDURE: The patient was taken to the operative suite, laid in supine position, given general anesthetic and a gram of Ancef and LMA was placed. The left upper extremity was then prepped and draped in sterile fashion. Timeout was performed. Everyone was in agreement with the correct site, side, patient, and procedure. I then exsanguinated the left upper extremity with an Esmarch, tourniquet was inflated to 250 mmHg, it was up 4 minutes. I then made an incision over the old incision just to the radial side of the MCP joint on the left hand and made careful dissection down to the cyst, excised it and removed the stalk and then put a 2-0 Vicryl suture through the hole. The stalk was then hopefully sealing and not getting a cyst to recur. Giovanna Castro, certified pest control technician, closed after letting the tourniquet down the skin incision with 5-0 Monocryl in running fashion and placed Steri-Strips, Adaptic, 4 x 4, and cast padding on it and lightly wrapped with Coban. She was then awakened and taken to recovery in stable condition. BLOOD LOSS: Minimal. COMPLICATIONS: None. TRANSINT:[id number] Voice Confirmation ID: [id number] DOCUMENT ID: [id number] JASON BRYSON DO at 0822 CC: [id number] DICTATION DATE: 09/08/20 0732 ROLL TENDER: 09/08/201909 [facility] 09/08/20 [facility] [address] [place] [address]
== END 2020-09-08 09:08 | disposition home or self-care (01) ==
LOC: D.OPS 05:00
PROVIDERS: Anesthesiology; ATTEND Orthopaedic Surgery
DX: M67.442 Ganglion, left hand (principal); M77.11 Lateral epicondylitis, right elbow

== ENCOUNTER → 2020-10-23 08:44 | Outpatient (CLI) | payer OTHER ==
[2020-09-08 05:31] VITALS: BMI 17.8
== END | disposition home or self-care (01) ==
LOC: D.MRI 08:44
PROVIDERS: ATTEND Nurse Practitioner Family
DX: M67.441 Ganglion, right hand (principal)